=== PATIENT | female | born 1970 | race African-American/Black ===

== ENCOUNTER 2022-05-01 13:30 | Outpatient (RCR) | payer OTHER, SELFPAY | END 2022-06-16 11:41 | disposition home or self-care (01) | LOC: ANHCPREHAB 13:30 | DX: I25.2 Old myocardial infarction (principal) | CPT/HCPCS: 93798 ==

== ENCOUNTER 2023-04-22 10:22 | Emergency (ER) | payer OTHER, SELFPAY ==
[2023-04-22] VITALS (19 sets, daily range): BP systolic 140–177; BP diastolic 82–111; PULSE 89–130; RESP 18–33; TEMP 36.8; O2SAT 93–100
--- NOTE | ~2023-04-22 | CT_ITS ---
EXAMINATION: CT abdomen pelvis w con DATE: 04/22/2023 12:56 INDICATION: Diffuse abdominal pain TECHNIQUE: Computed tomography (CT) of the abdomen and pelvis was performed with 100 mL Omnipaque-350 intravenous contrast. Automated exposure control and iterative reconstruction technique were employe d. The dose-length product was 1342.28 mGy-cm. COMPARISON: None FINDINGS: Bronchiectatic changes in the bilateral lower lungs. There groundglass opacities and some irregular s eptal line thickening without honeycombing at the periphery of the visualized lower lungs suggestive of nonspecific interstitial pneumonia (NSIP) pattern chronic interstitial lung disease with different ial including atelectasis and less likely mild pulmonary edema or pneumonia. Heart size is normal. No pericardial or pleural effusion. Mild dilation of the common bile duct up to 11 mm which is within n ormal limits post cholecystectomy. No intrahepatic biliary ductal dilation. Liver, spleen, pancreas, bilateral adrenal glands and kidneys are normal. Moderate diverticulosis scattered throughout the col on without associated infiltrate stranding to suggest diverticular colitis. Small bowel is normal wit h no obstruction. The appendix is not visualized. No pericecal inflammatory change to suggest acute a ppendicitis. Small fat-containing umbilical hernia. Bladder and anteverted retroflexed bladder are un remarkable. No free intraperitoneal gas or fluid. No pathologically enlarged abdominal or pelvic lymp hadenopathy. Moderate lumbar spondylosis with 4 mm anterolisthesis L4 on L5. IMPRESSION: 1. No acute intra-abdominal/pelvic process. 2. Bronchiectatic changes and likely NSIP pattern chronic interstitial lung disease at the visualized lower lung zones. Differential would include less likely pulmonary edema or pneumonia. Reviewed, dictated and finalized at location A. T TECHNICIAN IMPRESSION: 1. No acute intra-abdominal/pelvic process. 2. Bronchiectatic changes and likely NSIP pattern chronic interstitial lung dis ease at the visualized lower lung zones. Differential would include less likely pulmonary edema or pneumonia.
[2023-04-22 11:14] LABS: Basophils Percent Auto 0.4 % (0.2-1.2); Eosinophils Absolute Auto 0.2 K/mm3 (0-0.3); Eosinophils Percent Auto 2.5 % (0-4.4); Hematocrit 45.2 % (37.0-47.0); Hemoglobin 14.3 g/dL (12.0-15.0); Immature Granulocyte Absolute 0.04 K/mm3 (0.00-0.031); Immature Granulocyte Percent A 0.5 % (0-0.5); Lymphocytes Absolute Auto 1.71 K/mm3 (0.9-3.2); Lymphocytes Percent Auto 22.2 % (18.3-44.2); Mean Corpuscular HGB Conc 31.6 g/dl (32-36); Mean Corpuscular Hemoglobin 27.7 pg (26-34); Mean Corpuscular Volume 87.4 fl (80-100); Mean Platelet Volume 8.5 fl (7.4-10.4); Monocytes Absolute Auto 0.9 K/mm3 (0.1-0.6); Monocytes Percent Auto 11.6 % (2.6-8.5); Neutrophils Absolute Auto 4.8 K/mm3 (1.3-6.7); Neutrophils Percent Auto 62.8 % (45.5-73.1); Platelet Count Result 341 k/mm3 (150-375); Red Blood Count 5.17 M/mm3 (4.2-5.4); Red Cell Distribution Width 14.1 % (11.5-14.5); White Blood Count 7.7 K/mm3 (4.5-10.0)
[2023-04-22 11:23] LABS: Alanine Aminotransferase 27 U/L (6-35); Albumin Level 4.4 g/dL (3.5-5.1); Alkaline Phosphatase 125 U/L (38-126); Anion Gap 12 mmol/L (8-16); Aspartate Amino Transferase 29 U/L (14-36); Bilirubin,Total 0.8 mg/dL (0.2-1.3); Blood Urea Nitrogen 14 mg/dL (7-17); Calcium 9.7 mg/dL (8.4-10.2); Carbon Dioxide 21 mmol/L (22-30); Chloride 105 mmol/L (98-107); Estimated CRCL calculation 87 ml/min; Estimated Glomerular Filt Rate > 60; Glucose 165 mg/dL (65-110); Lipase 183 U/L (23-300); Potassium 3.8 mmol/L (3.4-5.0); Sodium 138 mmol/L (137-145)
[2023-04-22 11:24] LABS: Appearance Urine Cloudy (Clear); Bacteria Urine Rare /hpf; Bilirubin Urine Negative (Negative); Blood Urine Trace (Negative); Color Urine Yellow (Yellow); Glucose Urine UA 3+ mg/dL (Negative); Ketones Urine Trace mg/dL (Negative); Leukocyte Esterase Ur Negative LEU/UL (Negative); Nitrate Urine Negative (Negative); Non Pathogenic Casts 0-2; Protein Urine 3+ mg/dL (Negative); Squamous Epithelial Cell Urine Few /hpf (Few); Urobilinogen Urine 0.2 mg/dL (<2.0); WBC Urine 0-5 /hpf
[2023-04-22 11:29] LABS: Add Urine Microscopic? YES
--- NOTE | 2023-04-22 11:54 | ED.ABDPAIN ---
HPI - Abdominal Pain General Chief Complaint: Abdominal Pain Stated Complaint: n/v/d abd pain Time Seen by Provider: 04/22/23 11:23 History of Present Illness HPI narrative: 52-year-old female presenting to the emergency department for evaluation of nausea vomiting body aches and fatigue. Patient states symptoms started on Thursday. patient denies any cough or congestion. Patient does report nausea vomiting and body aches. Patient denies any pain with urination. Patient denies any falls or injuries. Related Data Home Medications Medication Instructions Recorded Confirmed aspirin 81 mg chewable tablet 81 mg PO DAILY 04/18/22 04/18/22 atorvastatin 80 mg tablet 80 mg HS 04/18/22 04/18/22 clonidine HCl 0.1 mg tablet 0.2 mg PO TID 04/18/22 04/18/22 dulaglutide 1.5 mg/0.5 mL 1.5 mg subcut WEEKLY 04/18/22 04/18/22 subcutaneous pen injector (Trulicity) empagliflozin 25 mg tablet 25 mg PO DAILY 04/18/22 04/18/22 hydralazine 50 mg tablet 50 mg TID 04/18/22 04/18/22 isosorbide dinitrate 10 mg tablet 10 mg PO BID 04/18/22 04/18/22 losartan 50 mg tablet 50 mg PO DAILY 04/18/22 04/18/22 metoprolol tartrate 100 mg tablet 100 mg PO BID 04/18/22 04/18/22 Allergies Allergy/AdvReac Type Severity Reaction Status Date / Time No Known Allergies Allergy Verified 04/22/23 13:06 Review of Systems Review of Systems: All systems reviewed & are unremarkable except as noted in HPI and below PMFSH Family History Family History (Updated 04/18/22 @ 15:29 by Nya Singer RN) Mother Heart disease Diabetes mellitus Heart attack Sibling Cerebrovascular accident Social History Social History Smoking packs per day: 0.25 Smoking cigarettes per day: 5.0 Years smoked: 10 Smoking pack-years: 2.50 Smoking status: Former smoker Tobacco type: cigarettes Exam Narrative: APPEARANCE: Well appearing, no pain, no distress, well-nourished. HEAD: normocephalic, atraumatic. EYES: PERRLA/EOMI, conjunctivae clear. NOSE: Normal no drainage EARS:TMS clear with good light reflex. THROAT: Pharynx clear, no exudate. NECK: Supple. No adenopathy, no masses. RESPIRATORY: Airway patent, respirations nonlabored. Clear to auscultation bilaterally, no rales, rhonchi, wheezing. CARDIOVASCULAR: Regular rate and rhythm without murmurs rubs or gallops. ABDOMINAL: Soft, nondistended, normal bowel sounds, diffuse tenderness MUSCULOSKELETAL: Moves all extremities. Strength/ROM intact, No edema, No calf tenderness. NEURO: Alert. Cranial nerves II through XII intact. Good gait. Good coordination SKIN: Warm, dry. Normal Color Course Course Emergency Course: 52-year-old female present to the emergency department for evaluation of nausea vomiting and diarrhea. Patient had no emesis or diarrhea in the emergency department. Patient was afebrile with no leukocytosis and hemoglobin of 14.3. No significant abnormalities on the patient's CMP. UA did show ketones and some hematuria but no other significant evidence of infection. Patient denies any urinary symptoms. Patient was negative for influenza RSV and for COVID. CT scan showed no acute abdominal pelvic process. On re-evaluation patient states that she does feel improved. Patient will be started on Zofran for home and patient was encouraged to follow a clear liquid diet for the next few days. All questions and concerns were addressed and patient was comfortable with the plan for discharge and close follow-up. Vital Signs Vital signs: Vital Signs Temperature 98.3 F 04/22/23 10:23 Pulse Rate 130 H 04/22/23 10:23 Respiratory Rate 18 04/22/23 10:23 Blood Pressure 156/101 H 04/22/23 10:23 Pulse Oximetry 93 04/22/23 10:23 Oxygen Delivery Room Air 04/22/23 10:23 Temperature 98.3 F 04/22/23 10:23 Pulse Rate 96 04/22/23 13:31 Respiratory Rate 31 H 04/22/23 13:31 Blood Pressure 140/101 H 04/22/23 13:30 Pulse Oximetry 99 04/22/23 13:31 Oxygen Delivery
[2023-04-22 12:29] LABS: Influenza A QL RT-PCR Negative (Negative); Influenza B QL RT-PCR Negative (Negative); RSV RNA, RT-PCR Negative (Negative); SARS-CoV-2 RNA PCR Negative (Negative)
[2023-04-22] MEDS: MORPHINE SULFATE (*CRX) 2 MG/ML INJ IV PUSH (12:41)
[2023-04-22] MEDS: SODIUM CHLORIDE 0.9% IV 1,000 ML 999 ML IV CONT (12:41)
[2023-04-22] MEDS: ONDANSETRON INJ 4 MG/2 ML VIAL IV PUSH (12:41)
== END 2023-04-22 14:22 | disposition home or self-care (01) ==
PROVIDERS: Emergency Provider Emergency Medicine
DX: R11.2 Nausea with vomiting, unspecified (principal); R19.7 Diarrhea, unspecified; Z20.822 Contact with and (suspected) exposure to COVID-19; Z87.891 Personal history of nicotine dependence; Z79.82 Long term (current) use of aspirin; R91.8 Other nonspecific abnormal finding of lung field
CPT/HCPCS: 36415; 74177; 80053; 81001; 83690; 85025; 87637; 96361; 96374; 96375; 99284; J2270; J2405; J7030; Q9967